=== PATIENT | male | born 1950 | race Caucasian/White ===

== ENCOUNTER 2021-05-20 21:23 | Inpatient (IN) | payer MEDICARE ==
[2021-05-20 22:34] LABS: #Basophils 0.1 thou/uL (0.0-0.2); #Eosinphils 0.4 thou/uL (0.0-0.7); #Lymphocytes 2.1 thou/uL (1.20-3.40); #Neutrophils 6.2 thou/uL (1.40-6.50); %Basophils 1.5 % (0.0-1.0); %Eosinophils 3.7 % (0.0-10.0); %Lymphocytes 21.2 % (21.0-51.0); %Monocytes 10.5 % (0.0-10.0); %Neutrophils 63.1 % (42.0-75.0); Hemoglobin 9.2 g/dL (14.0-18.0); Mean Corpuscular Hemoglobin 33.7 pg (27.0-31.0); Mean Corpuscular Volume 99.3 fL (78.0-98.0); Mean Platelet Volume 6.7 fL (7.4-10.4); Platelet Count 222 thou/uL (130-400); RBC Distribution Width 11.7 % (11.5-14.5); Red Blood Cell (RBC) Count 2.73 mill/uL (4.70-6.10); White Blood Cell (WBC) Count 9.8 thou/uL (4.8-10.8)
[2021-05-20 22:51] LABS: ALT (SGPT) 11 U/L (8-55); AST (SGOT) 20 U/L (5-34); Albumin 3.7 g/dL (3.4-4.8); Alkaline Phosphatase 48 U/L (40-110); Anion Gap 14 mmol/L (10-20); BUN (Urea Nitrogen) 22 mg/dL (8.4-25.7); Bilirubin, Total 0.3 mg/dL (0.2-1.2); Calc. Creatinine Clearance 0 mL/min (70-130); Calcium 8.3 mg/dL (7.8-10.44); Carbon Dioxide 22 mmol/L (23-31); Chloride 102 mmol/L (98-107); Globulin 2.4 g/dL (2.4-3.5); Glucose 98 mg/dL (80-115); Potassium 3.5 mmol/L (3.5-5.1); Protein, Total 6.1 g/dL (5.8-8.1); Sodium 134 mmol/L (136-145)
[2021-05-21] MEDS ORDERED: Ondansetron PF 4 MG/2 ML Vial IVP PRN (02:20)
[2021-05-21] MEDS ORDERED: Acetaminophen 650 MG Suppository PR PRN (02:20)
[2021-05-21] MEDS ORDERED: Ondansetron ODT 4 MG TAB PO PRN (02:20)
[2021-05-21] MEDS ORDERED: Acetaminophen 325 MG TAB PO PRN (02:20)
[2021-05-21 03:11] LABS: #Basophils 0.1 thou/uL (0.0-0.2); #Eosinphils 0.4 thou/uL (0.0-0.7); #Lymphocytes 2.1 thou/uL (1.20-3.40); #Neutrophils 4.9 thou/uL (1.40-6.50); %Basophils 0.6 % (0.0-1.0); %Eosinophils 5.2 % (0.0-10.0); %Lymphocytes 25.2 % (21.0-51.0); %Monocytes 11.6 % (0.0-10.0); %Neutrophils 57.5 % (42.0-75.0); Hemoglobin 8.5 g/dL (14.0-18.0); Mean Corpuscular HGB CONC 35.4 g/dL (32.0-36.0); Mean Corpuscular Hemoglobin 34.3 pg (27.0-31.0); Mean Platelet Volume 6.7 fL (7.4-10.4); Platelet Count 217 thou/uL (130-400); RBC Distribution Width 11.8 % (11.5-14.5); Red Blood Cell (RBC) Count 2.46 mill/uL (4.70-6.10); White Blood Cell (WBC) Count 8.5 thou/uL (4.8-10.8)
[2021-05-21] MEDS ORDERED: Sodium Chloride 0.9% 500 ML IV SCH (03:30)
[2021-05-21] MEDS ORDERED: Pantoprazole 40 MG VIAL IVP SCH ×3 (03:38→21:00)
[2021-05-21 03:55] LABS: Anion Gap 13 mmol/L (10-20); BUN (Urea Nitrogen) 22 mg/dL (8.4-25.7); Calc. Creatinine Clearance 0 mL/min (70-130); Calcium 8.2 mg/dL (7.8-10.44); Carbon Dioxide 20 mmol/L (23-31); Chloride 107 mmol/L (98-107); Glucose 110 mg/dL (80-115); Potassium 3.8 mmol/L (3.5-5.1); Sodium 136 mmol/L (136-145)
[2021-05-21] MEDS ORDERED: Pantoprazole 40 MG VIAL ONE (03:59)
[2021-05-21] MEDS: Sodium Chloride 0.9% 1,000 ML IV SCH ×2 (04:12→18:43)
[2021-05-21 07:02] LABS: Hemoglobin 8.2 g/dL (14.0-18.0)
[2021-05-21 10:13] LABS: Reticulocyte Count 3.2 % (0.5-1.5)
[2021-05-21 10:24] LABS: Prothrombin Time 13.7 sec (12.0-14.7)
[2021-05-21 10:25] LABS: PTT 27.8 sec (22.9-36.1)
[2021-05-21 10:32] LABS: Iron 34 ug/dL (65-175); Iron Binding Capacity, Total 290 mcg/dL (261-462); Iron Binding Capacity, Total 293 mcg/dL (261-462)
[2021-05-21 10:49] LABS: Ferritin 14.56 ng/mL (22-322)
[2021-05-21 12:29] LABS: SARS-CoV-2 PCR by NAA Not Detected (NotDetected)
[2021-05-21 13:14] LABS: Hemoglobin 9.2 g/dL (14.0-18.0)
[2021-05-21] MEDS ORDERED: Lidocaine 1% PF 5 ML VIAL ONE (14:52)
[2021-05-21] MEDS ORDERED: PROPOFOL 200 MG/20 ML VIAL ONE (14:52)
[2021-05-21] MEDS ORDERED: Ondansetron HCl/PF 4 MG/2 ML Vial IVP PRN (15:15)
[2021-05-21] MEDS ORDERED: Promethazine HCl 25 MG/ML VIAL IVPB PRN (15:15)
[2021-05-21] MEDS ORDERED: Promethazine HCl 25 MG/ML VIAL IM PRN (15:15)
[2021-05-21] MEDS ORDERED: GoLYTELY 4,000 ml Bottle PO SCH (17:00)
[2021-05-21 18:45] VITALS: BMI 27.2
[2021-05-21] MEDS: Sotalol HCl 80 MG TAB PO SCH (21:06)
[2021-05-21] MEDS: Atorvastatin Calcium 10 MG TAB PO SCH (21:06)
[2021-05-21] MEDS: Pantoprazole 40 MG VIAL IVP SCH (21:07)
[2021-05-22 05:30] LABS: #Eosinphils 0.3 thou/uL (0.0-0.7); #Lymphocytes 1.7 thou/uL (1.20-3.40); #Monocytes 0.8 thou/uL (0.11-0.59); #Neutrophils 5.5 thou/uL (1.40-6.50); %Basophils 0.4 % (0.0-1.0); %Eosinophils 3.5 % (0.0-10.0); %Lymphocytes 20.4 % (21.0-51.0); %Neutrophils 65.7 % (42.0-75.0); Hemoglobin 9.2 g/dL (14.0-18.0); Mean Corpuscular HGB CONC 34.6 g/dL (32.0-36.0); Mean Corpuscular Hemoglobin 34.1 pg (27.0-31.0); Mean Corpuscular Volume 98.7 fL (78.0-98.0); Mean Platelet Volume 6.9 fL (7.4-10.4); Platelet Count 226 thou/uL (130-400); Red Blood Cell (RBC) Count 2.68 mill/uL (4.70-6.10); White Blood Cell (WBC) Count 8.4 thou/uL (4.8-10.8)
[2021-05-22 05:43] LABS: Anion Gap 15 mmol/L (10-20); BUN (Urea Nitrogen) 11 mg/dL (8.4-25.7); Calc. Creatinine Clearance 135 mL/min (70-130); Calcium 7.9 mg/dL (7.8-10.44); Carbon Dioxide 17 mmol/L (23-31); Chloride 110 mmol/L (98-107); Glucose 80 mg/dL (80-115); Potassium 3.7 mmol/L (3.5-5.1); Sodium 138 mmol/L (136-145)
[2021-05-22] MEDS: Sotalol HCl 80 MG TAB PO SCH ×2 (09:18→21:03)
[2021-05-22] MEDS: Pantoprazole 40 MG VIAL IVP SCH (09:20)
[2021-05-22] MEDS ORDERED: PROPOFOL 200 MG/20 ML VIAL ONE (11:20)
[2021-05-22] MEDS: Atorvastatin Calcium 10 MG TAB PO SCH (21:03)
[2021-05-23 04:15] LABS: Hemoglobin 8.7 g/dL (14.0-18.0)
[2021-05-23 08:05] VITALS: BP 130/79; TEMP 98
[2021-05-23] MEDS: Sotalol HCl 80 MG TAB PO SCH (09:01)
[2021-05-24] MEDS ORDERED: FLU VACC QS2021-22(65YR UP)/PF 240 MCG/0.7 ML SYRINGE IM ONE (09:00)
== END 2021-05-23 09:54 | disposition home or self-care (01) | DRG 378 ==
LOC: ERS 21:23 → ERHOLD 23:32 → SURG A 05-21 14:20 → 2NO 05-21 18:47
PROVIDERS: ADMIT Student in an Organized Health Care Education/Training Program; ATTEND Hospitalist
PROC: 0DB68ZX Excision of Stomach, Via Natural or Artificial Opening Endoscopic, Diagnostic (ICD-10-PCS; principal; 2021-05-21)
PROC: 30233N1 Transfusion of Nonautologous Red Blood Cells into Peripheral Vein, Percutaneous Approach (ICD-10-PCS; 2021-05-21)
PROC: 0DJD8ZZ Inspection of Lower Intestinal Tract, Via Natural or Artificial Opening Endoscopic (ICD-10-PCS; 2021-05-22)
PROC: 0W3P8ZZ Control Bleeding in Gastrointestinal Tract, Via Natural or Artificial Opening Endoscopic (ICD-10-PCS; 2021-05-22)
DX: K92.2 Gastrointestinal hemorrhage, unspecified (principal); D62 Acute posthemorrhagic anemia; E87.1 Hypo-osmolality and hyponatremia; I48.20 Chronic atrial fibrillation, unspecified; K31.82 Dieulafoy lesion (hemorrhagic) of stomach and duodenum; E78.00 Pure hypercholesterolemia, unspecified; E78.5 Hyperlipidemia, unspecified; F17.290 Nicotine dependence, other tobacco product, uncomplicated; Z20.822 Contact with and (suspected) exposure to COVID-19; I50.9 Heart failure, unspecified; M19.90 Unspecified osteoarthritis, unspecified site; K63.5 Polyp of colon; K29.80 Duodenitis without bleeding; K29.60 Other gastritis without bleeding; Z79.82 Long term (current) use of aspirin; Z79.899 Other long term (current) drug therapy; Z95.810 Presence of automatic (implantable) cardiac defibrillator; Z90.49 Acquired absence of other specified parts of digestive tract; Z86.010 Personal history of colon polyps
CPT/HCPCS: 36415; 36430; 80048; 80053; 82607; 82728; 82746; 83540; 83550; 85014; 85018; 85025; 85046; 85610; 85730; 86850; 86900; 86901; 88305; 88312; 93005; C1776; C9113; J2704; J7030; J7050; P9016; U0003; U0005

== ENCOUNTER 2021-06-30 06:06 | Day surgery (SDC) | payer MEDICARE ==
[2021-06-25 10:07] VITALS: BMI 27.1
[2021-06-30] MEDS ORDERED: ePHEDrine Sulfate 50 MG/10 ML VIAL ONE (07:56)
[2021-06-30] MEDS ORDERED: PHENYLEPHRINE-NS 100 MCG/ML 10 ML SYRINGE ONE ×2 (07:56→08:15)
[2021-06-30] MEDS ORDERED: PROPOFOL 200 MG/20 ML VIAL ONE (08:15)
== END 2021-06-30 10:00 | disposition home or self-care (01) ==
LOC: SDC 06:06
PROVIDERS: ATTEND Internal Medicine Gastroenterology
PROC: 0DBM8ZX Excision of Descending Colon, Via Natural or Artificial Opening Endoscopic, Diagnostic (ICD-10-PCS; principal; 2021-06-30)
PROC: 0DBP8ZX Excision of Rectum, Via Natural or Artificial Opening Endoscopic, Diagnostic (ICD-10-PCS; 2021-06-30)
DX: K57.31 Diverticulosis of large intestine without perforation or abscess with bleeding (principal); K63.5 Polyp of colon; D12.8 Benign neoplasm of rectum; D62 Acute posthemorrhagic anemia; M19.90 Unspecified osteoarthritis, unspecified site; I48.91 Unspecified atrial fibrillation; I50.9 Heart failure, unspecified; E78.00 Pure hypercholesterolemia, unspecified; F17.200 Nicotine dependence, unspecified, uncomplicated; Z86.010 Personal history of colon polyps; Z79.82 Long term (current) use of aspirin; Z79.899 Other long term (current) drug therapy; Z90.49 Acquired absence of other specified parts of digestive tract; Z95.810 Presence of automatic (implantable) cardiac defibrillator
CPT/HCPCS: 88305; J2704

== ENCOUNTER 2023-10-25 09:21 | Outpatient (CLI) | payer MEDICARE | END 2023-10-25 09:22 | disposition home or self-care (01) | LOC: SCSRAD 09:21 | PROVIDERS: ATTEND Pain Medicine Interventional Pain Medicine | DX: I47.29 Other ventricular tachycardia (principal) | CPT/HCPCS: 71046 ==